=== PATIENT | male | born 1985 | race Two or more races ===

== ENCOUNTER 2022-01-30 23:13 | Emergency (ER) | payer OTHER ==
[~2022-01-30] VITALS: Ht 177.8 cm; Wt 100.0 kg
[2022-01-30] MEDS ORDERED: diphenhdrAMINE HCL 50 MG/1 ML VL IV ONE (23:30)
[2022-01-30] MEDS ORDERED: EPINEPHrine HCL 1 MG/1 ML AMP IM ONE (23:30)
[2022-01-30] MEDS ORDERED: FAMOTIDINE (10MG/ML) 2ML VL IV ONE (23:30)
[2022-01-30] MEDS ORDERED: DexAMETHasone SOD PHOS 10MG/1ML VIAL INJ IV ONE (23:30)
[2022-01-31 01:50] VITALS: BP 139/82
== END 2022-01-31 02:06 | disposition home or self-care (01) ==
LOC: ER 23:13
DX: T78.40XA Allergy, unspecified, initial encounter (principal); X58.XXXA Exposure to other specified factors, initial encounter
CPT/HCPCS: 96372; 96374; 96375; 99284; J0171; J1100; J1200; J3490